=== PATIENT | female | born 1960 | race Two or more races ===

== ENCOUNTER 2018-07-22 01:17 | Inpatient (IN) | payer MEDICARE, MEDICAID ==
[~2018-07-22] VITALS: Ht 167.6 cm; Wt 83.5 kg
--- NOTE | 2018-07-22 02:45 | NUR ---
ADMITTED A 58 Y/O FEMALE FROM [facility], ON [address] HOLD DTS, BASED ON HOLD, PATIENT STATED SHE FEELS SAD AND UPSET WITH MOTHER. PATIENT WISHES TO KILL HERSELF BY TAKING RAT POISON. PATIENT ADMITTING DX. DEPRESSION AND MEDICAL DX. OF HYPERTENSION, RIGHT EYE BLINDNESS AND LEFT EYE POOR VISION. UPON FACE TO FACE EVALUATION, PATIENT APPEARED ALERT AND ORIENTED X 3, CALM, COOPERATIVE, FEARFUL, ANXIOUS, NEEDY, DENIES SI AT THIS TIME, DENIES HI, AH, VH, NO SOB, NO ACUTE DISTRESS, BREATHING EVEN AND UNLABORED, DENIES PAIN AND DISCOMFORT. BODY CHECK DONE, SKIN INTACT, PICTURE DONE, PATIENT UNABLE TO SIGN PAPER WORKS, PATIENT IS UNDER DR. BOO. BELONGINGS INSPECTED FOR CONTRABAND CHECKING. ALL NEEDS ATTENDED AND MET. PATIENT ORIENTED TO THE POLICIES AND PROCEDURE. CALL LIGHT PLACED WITHIN REACH. WILL CONTINUE TO MONITOR [id number] FOR SAFETY
[2018-07-22] MEDS ORDERED: MAG HYDROX/AL HYDROX/SIMETH 30 ML UDC PO PRN (03:00)
[2018-07-22] MEDS ORDERED: clonazePAM 0.5 MG TABLET PO PRN (03:00)
[2018-07-22 03:31] VITALS: BP 143/85
[2018-07-22] MEDS ORDERED: SOLI5TAB2 PO (04:05)
[2018-07-22] MEDS ORDERED: BRIM5DRO5 PO (04:05)
[2018-07-22] MEDS ORDERED: LURA80TA PO (04:05)
[2018-07-22] MEDS ORDERED: LOSA50TA39 PO (04:05)
[2018-07-22] MEDS ORDERED: VENL150C58 PO (04:05)
[2018-07-22] MEDS ORDERED: BENZ2TAB7 PO (04:05)
[2018-07-22] MEDS ORDERED: DORZ10DR10 LEFTEYE (04:05)
[2018-07-22] MEDS ORDERED: BIMA2.5D5 LEFTEYE (04:05)
--- NOTE | 2018-07-22 05:03 | NUR ---
GPS RN NOTE: NOTIFIED CARRINGTON ZUNIGA OF THE PATIENT ADMISSION AND FOR MED RECON
--- NOTE | 2018-07-22 09:13 | NUR ---
MIGUEL received a call from Brenda Lorenzana-director of radio services at the [facility] [phone] providing SW with collateral information and also informed her pt is diagnosed with Mild Intellectual Disability and Cerebral Palsy, She also informed SW that pt is currently under the psychiatric care of Dr. Marcial Morel [address] [address] [phone]. MIGUEL will collaborate discharge with Brenda as she stated pt does not want to return home.
--- NOTE | 2018-07-22 10:30 | NUR ---
MIGUEL contacted pts mother Melanie [phone] to discuss discharge planning. Per mother she does not have DPOA/Conservatorship over pt. Mother also stated that she would to be able to survive financially if pt is discharged to a SNF. Mother also stated that she wants the best for pt and feels that pt returning home will be the best place for her at the moment.
--- NOTE | 2018-07-22 11:05 | NUR ---
INITIAL DISCHARGE PLAN: Patient does not want to return home to [address] [place] [address]. However, pts mother Melanie [phone] wishes for pt to return home and states that placing pt at a SNF will not benefit pt. SW will coordinate discharge with Brenda Lorenzana-industrial garage servicer at the [facility] [phone] and pts mother and MD and plan for a safe and proper discharge.
[2018-07-22] MEDS: risperiDONE 1 MG TABLET PO SCH ×2 (12:31→16:20)
[2018-07-22] MEDS: BENZTROPINE MESYLATE (1 MG) 1 MG TABLET PO SCH ×2 (12:32→16:21)
[2018-07-22] MEDS: VENLAFAXINE XR 150 MG CAP.SR.24H PO SCH ×2 (12:32→16:20)
[2018-07-22] MEDS: BRIMONIDINE TARTRATE OPHT SOLN 5 ML BOTTLE LEFTEYE SCH ×2 (13:57→16:24)
[2018-07-22 16:00] VITALS: BP 132/92
[2018-07-22] MEDS: OXYBUTYNIN CHLORIDE 5 MG TABLET PO SCH (16:20)
[2018-07-22] MEDS: DORZOLAMIDE OPTH 2% 10 ML BOTTLE LEFTEYE SCH (16:24)
[2018-07-22 16:36] LABS: APPEARANCE,URINE SL CLOUDY (CLEAR); BILIRUBIN,URINE NEGATIVE (NEGATIVE); BLOOD, URINE NEGATIVE Ery/uL (NEGATIVE); COLOR,URINE YELLOW (YELLOW); KETONES,URINE NEGATIVE (NEGATIVE); LEUKOCYTE ESTERASE ,URINE 1+ (NEGATIVE); NITRITE, URINE NEGATIVE (NEGATIVE); PH,URINE 5.5 (5.0-8.0); PROTEIN,URINE NEGATIVE (NEGATIVE); UGLUCOSE TRACE mg/dL (NEGATIVE); UROBILINOGEN,URINE 0.2 EU/dL (0.2)
[2018-07-22 16:44] LABS: BACTERIA,URINE Rare /HPF (None Seen); RBC,URINE 0-2 /HPF (0-2); SQUAMOUS EPITHELIAL CELL,UR Few /HPF (None Seen)
--- NOTE | 2018-07-22 18:15 | NUR ---
PT. WITH AN ORDER OF 1:1 FOR RIGHT EYE BLINDNESS AND LEFT EYE POOR VISION.
[2018-07-22 20:00] VITALS: BP 112/74
[2018-07-22] MEDS: LATANOPROST EYE DROP 0.005% 2.5 ML BOTTLE LEFTEYE SCH (21:41)
[2018-07-22] MEDS ORDERED: LATANOPROST EYE DROP 0.005% 2.5 ML BOTTLE EACHEYE SCH (22:00)
[2018-07-23 07:31] LABS: BASOPHILS % (AUTO) 0.3 % (0.0-2.0); EOSINOPHILS % (AUTO) 1.6 % (0.0-6.0); HEMATOCRIT 43 % (33-45); HEMOGLOBIN 14.4 g/dL (11.5-14.8); LYMPHOCYTES # (AUTO) 1.7 /CMM (0.8-4.8); MEAN CORPUSCULAR HGB CONC 34 g/dl (31.0-36.0); MEAN CORPUSCULAR VOLUME 99 fL (82-100); MONOCYTES # (AUTO) 0.7 /CMM (0.1-1.30); MONOCYTES % (AUTO) 10.3 % (2.0-12.0); NEUTROPHILS # (AUTO) 4.2 /CMM (1.8-8.9); NEUTROPHILS % (AUTO) 62.8 % (43.0-81.0); PLATELET COUNT (AUTO) 196 /CMM (150-450); RED BLOOD CELL COUNT(AUTO) 4.32 MIL/uL (4.0-5.2); WHITE BLOOD COUNT (AUTO) 6.7 K/uL (4.3-11.0)
[2018-07-23 08:00] VITALS: BP 132/89
[2018-07-23 08:01] LABS: ALBUMIN 3.4 g/dL (3.4-5.0); BILIRUBIN,TOTAL 0.3 mg/dL (0.2-1.0); CALCIUM, SERUM 8.6 mg/dL (8.5-10.1); CREATININE 0.8 mg/dL (0.6-1.3); POTASSIUM 3.5 mmol/L (3.5-5.1); TOTAL PROTEIN, SERUM 6.9 g/dL (6.4-8.2)
[2018-07-23] MEDS: OXYBUTYNIN CHLORIDE 5 MG TABLET PO SCH ×2 (09:22→16:51)
[2018-07-23] MEDS: VENLAFAXINE XR 150 MG CAP.SR.24H PO SCH ×2 (09:22→16:52)
[2018-07-23] MEDS: LOSARTAN POTASSIUM 50 MG TABLET PO SCH (09:22)
[2018-07-23] MEDS: risperiDONE 1 MG TABLET PO SCH ×2 (09:22→16:51)
[2018-07-23] MEDS: BENZTROPINE MESYLATE (1 MG) 1 MG TABLET PO SCH ×2 (09:22→16:51)
[2018-07-23] MEDS: DORZOLAMIDE OPTH 2% 10 ML BOTTLE LEFTEYE SCH ×2 (09:23→16:53)
[2018-07-23] MEDS: BRIMONIDINE TARTRATE OPHT SOLN 5 ML BOTTLE LEFTEYE SCH ×3 (09:24→16:52)
--- NOTE | 2018-07-23 11:27 | NUR ---
MIGUEL received a call from Brenda Lorenzana-student services coordinator at the [facility] [phone] and discussed discharge planning. Brenda stated that if pt wishes to be discharged to a SNF short-term she would be able to assist pt with long-term placement. Brenda informed SW that she has been in contact with pts mother and has had several conversations regarding pts current living situation and her mental wellness. Brenda is aware that pts mother relies on pts income to survive and stated that due to mother not having any legal power over her pt is able to do as she wishes and if she wants to move out she is able to. SW stated that she would speak with pt regarding her discharge plan and plan accordingly.
[2018-07-23 16:00] VITALS: BP 112/76
[2018-07-23 20:00] VITALS: BP 109/64
[2018-07-23] MEDS: LATANOPROST EYE DROP 0.005% 2.5 ML BOTTLE LEFTEYE SCH (21:01)
[2018-07-23] MEDS: ACETAMINOPHEN 325 MG TABLET PO PRN (21:10)
[2018-07-24] MEDS: ACETAMINOPHEN 325 MG TABLET PO PRN (03:03)
[2018-07-24 08:00] VITALS: BP 131/78
[2018-07-24] MEDS: BENZTROPINE MESYLATE (1 MG) 1 MG TABLET PO SCH ×2 (09:21→17:29)
[2018-07-24] MEDS: OXYBUTYNIN CHLORIDE 5 MG TABLET PO SCH ×2 (09:21→17:29)
[2018-07-24] MEDS: VENLAFAXINE XR 150 MG CAP.SR.24H PO SCH ×2 (09:21→17:29)
[2018-07-24] MEDS: risperiDONE 1 MG TABLET PO SCH ×2 (09:21→17:29)
[2018-07-24] MEDS: LOSARTAN POTASSIUM 50 MG TABLET PO SCH (09:22)
[2018-07-24] MEDS: DORZOLAMIDE OPTH 2% 10 ML BOTTLE LEFTEYE SCH ×2 (09:22→17:30)
[2018-07-24] MEDS: BRIMONIDINE TARTRATE OPHT SOLN 5 ML BOTTLE LEFTEYE SCH ×3 (09:22→17:30)
[2018-07-24 16:00] VITALS: BP 131/70
[2018-07-24 20:00] VITALS: BP 119/59
[2018-07-24] MEDS: TEMAZEPAM 7.5 MG CAPSULE PO PRN (21:02)
[2018-07-24] MEDS: LATANOPROST EYE DROP 0.005% 2.5 ML BOTTLE LEFTEYE SCH (21:06)
[2018-07-25 08:00] VITALS: BP 126/92
[2018-07-25] MEDS: VENLAFAXINE XR 150 MG CAP.SR.24H PO SCH ×2 (08:41→17:20)
[2018-07-25] MEDS: risperiDONE 1 MG TABLET PO SCH ×2 (08:41→17:20)
[2018-07-25] MEDS: LOSARTAN POTASSIUM 50 MG TABLET PO SCH (08:41)
[2018-07-25] MEDS: BENZTROPINE MESYLATE (1 MG) 1 MG TABLET PO SCH ×2 (08:41→17:20)
[2018-07-25] MEDS: OXYBUTYNIN CHLORIDE 5 MG TABLET PO SCH ×2 (08:41→17:20)
[2018-07-25] MEDS: BRIMONIDINE TARTRATE OPHT SOLN 5 ML BOTTLE LEFTEYE SCH ×3 (08:41→17:21)
[2018-07-25] MEDS: DORZOLAMIDE OPTH 2% 10 ML BOTTLE LEFTEYE SCH ×2 (08:42→17:21)
[2018-07-25 16:00] VITALS: BP 126/83
--- NOTE | 2018-07-25 19:30 | NUR ---
GPS RN NOTE, RECEIVED PATIENT AWAKE AND IN BED NO S/S OR COMPLAINTS OF PAIN AT THIS TIME. PATIENT IS DISPLAYING NO S/S OF APPARENT DISTRESS AT THIS TIME. PATIENT BREATHING IS UNLABORED WITH EQUAL RISE AND FALL OF THE CHEST. PATIENT IS ALERT AND ORIENTED X 3 ON ROOM AIR WITH A SPO2 0F 95%. PATIENT HAS ONE TO ONE SITTER FOR BEING A HIGH FALL RISK. PATIENT IS MED COMPLIANT, DISORGANIZED, DEPRESSED, COOPERATIVE, CONFUSED AT TIME, AND NEEDS REORIENTATION. PATIENT DENIES SUICIDE AND HOMICIDAL IDEATIONS AT THIS TIME. PATIENT ASSISTED WITH TURNING AND REPOSITIONING Q2HR AND PRN FOR COMFORT AND CIRCULATION. PATIENT HAS NO NEEDS AT THIS TIME. PATIENT EDUCATED ON THE USE OF THE CALL AYALA. PATIENT BED SIDE RAILS ARE UP X 2 FOR SAFETY, BED IS LOCKED AND LOW. WILL CONTINUE TO MONITOR AND MAINTAIN SAFETY Q15 MIN WITH THE HELP OF STAFF.
[2018-07-25] MEDS: MAGNESIUM HYDROXIDE 30 ML UDC PO PRN (19:58)
--- NOTE | 2018-07-25 19:58 | NUR ---
GPS RN NOTE, PATIENT HAS A COMPLAINT OF CONSTIPATION AND IS REQUESTING MOM AT THIS TIME. PATIENT VITAL SIGNS ARE STABLE. GAVE MILK OF MAGNESIA 30 ML PO Q12HR PRN ORDERED. WILL REASSESS FOR CONSTIPATION AND I WILL CONTINUE TO MONITOR THIS PATIENT.
[2018-07-25 20:00] VITALS: BP 123/74
[2018-07-25] MEDS: LATANOPROST EYE DROP 0.005% 2.5 ML BOTTLE LEFTEYE SCH (21:24)
[2018-07-25] MEDS: TEMAZEPAM 7.5 MG CAPSULE PO PRN (21:33)
--- NOTE | 2018-07-25 21:33 | NUR ---
GPS RN NOTE, PATIENT HAS A COMPLAINT OF NOT BEING ABLE TO SLEEP AND IS REQUESTING RESTORIL AT THIS TIME. PATIENT VITAL SIGNS ARE STABLE. GAVE RESTORIL 7.5MG PO HS PRN ORDERED. WILL REASSESS FOR INSOMNIA AND I WILL CONTINUE TO MONITOR THIS PATIENT.
[2018-07-26] MEDS ORDERED: TEMAZEPAM 7.5 MG CAPSULE PO PRN (00:30)
[2018-07-26 08:07] VITALS: BP 116/71
[2018-07-26] MEDS: risperiDONE 1 MG TABLET PO SCH ×3 (08:43→17:10)
[2018-07-26] MEDS: OXYBUTYNIN CHLORIDE 5 MG TABLET PO SCH ×2 (08:44→17:10)
[2018-07-26] MEDS: LOSARTAN POTASSIUM 50 MG TABLET PO SCH (08:44)
[2018-07-26] MEDS: VENLAFAXINE XR 150 MG CAP.SR.24H PO SCH ×2 (08:44→17:10)
[2018-07-26] MEDS: BRIMONIDINE TARTRATE OPHT SOLN 5 ML BOTTLE LEFTEYE SCH ×3 (08:45→17:12)
[2018-07-26] MEDS: DORZOLAMIDE OPTH 2% 10 ML BOTTLE LEFTEYE SCH ×2 (08:45→17:11)
[2018-07-26] MEDS: BENZTROPINE MESYLATE (1 MG) 1 MG TABLET PO SCH ×2 (09:09→17:10)
--- NOTE | 2018-07-26 10:27 | NUR ---
SW contacted pts mother Melanie [phone] to discuss discharge planning. Mother agreed for pt to be discharged to a SNF. SW was present when pt spoke with mother and stated that she did not want to return home. Mother agreed and requested pt be referred to SNF's in [facility] [place], or [facility].
--- NOTE | 2018-07-26 11:44 | NUR ---
MIGUEL faxed SNF referrals to Alejandra, charge coordinator at [facility] Address: [address] [place] [address] , Annemarie, charge coordinator at [facility] Address: [address] [place] [address] , Yuridia charge coordinator at [facility] Address: [address] [place] [address] , Natalia, charge coordinator at [facility] Address: [address] [place] [address] , and Sommer charge coordinator at [facility] Address: [address] [place] [address] for review.
--- NOTE | 2018-07-26 14:01 | NUR ---
SW received call from Sommer, student life coordinator at [facility] Address: [address] [place] [address] stating pt has been accepted to the facility.
--- NOTE | 2018-07-26 14:02 | NUR ---
SW received a call from Natalia, educational technology coordinator at [facility] Address: [address], [place] [address] stating pt has been accepted to the facility.
[2018-07-26 16:00] VITALS: BP 115/76
[2018-07-26 20:00] VITALS: BP 116/76
[2018-07-26] MEDS: LATANOPROST EYE DROP 0.005% 2.5 ML BOTTLE LEFTEYE SCH (21:26)
[2018-07-27 07:16] LABS: CALCIUM, SERUM 8.7 mg/dL (8.5-10.1); CREATININE 0.9 mg/dL (0.6-1.3)
[2018-07-27 08:00] VITALS: BP 129/77
[2018-07-27] MEDS: BENZTROPINE MESYLATE (1 MG) 1 MG TABLET PO SCH ×2 (08:37→17:21)
[2018-07-27] MEDS: VENLAFAXINE XR 150 MG CAP.SR.24H PO SCH ×2 (08:37→17:21)
[2018-07-27] MEDS: LOSARTAN POTASSIUM 50 MG TABLET PO SCH (08:37)
[2018-07-27] MEDS: BRIMONIDINE TARTRATE OPHT SOLN 5 ML BOTTLE LEFTEYE SCH ×3 (08:37→17:21)
[2018-07-27] MEDS: OXYBUTYNIN CHLORIDE 5 MG TABLET PO SCH ×2 (08:37→17:21)
[2018-07-27] MEDS: risperiDONE 1 MG TABLET PO SCH ×2 (08:37→17:21)
[2018-07-27] MEDS: DORZOLAMIDE OPTH 2% 10 ML BOTTLE LEFTEYE SCH ×2 (08:38→17:21)
[2018-07-27] MEDS: MAGNESIUM HYDROXIDE 30 ML UDC PO PRN (11:07)
--- NOTE | 2018-07-27 11:13 | NUR ---
NURSING NOTE: PT STATING "I'M CONSTIPATED", REQUESTING MILK OF MAGNESIA. ADMINISTERED MILK OF MAGNESIA 30ML PO PER MD ORDER. WILL CONTINUE TO MONITOR.
--- NOTE | 2018-07-27 14:05 | NUR ---
SW contacted SW contacted pts mother Melanie [phone] to inform her pt has been accepted to [facility] and will be discharging tomorrow 07/28/18. Mother agreed with discharge plan.
--- NOTE | 2018-07-27 14:06 | NUR ---
MIGUEL contacted Sommer, area coordinator at [facility] Address: [address] [place] [address] to inform her pt was discharging tomorrow 07/28/18.
--- NOTE | 2018-07-27 14:07 | NUR ---
MIGUEL contacted Brenda Lorenzana-impact retail service merchandiser at the [facility] [phone] and left a voicemail informing her pt will be discharged tomorrow 07/28/18 to [facility] and [facility].
[2018-07-27 15:57] VITALS: BP 100/65
[2018-07-27] MEDS: LATANOPROST EYE DROP 0.005% 2.5 ML BOTTLE LEFTEYE SCH (21:52)
[2018-07-28 08:00] VITALS: BP 99/70
[2018-07-28] MEDS: BENZTROPINE MESYLATE (1 MG) 1 MG TABLET PO SCH (08:11)
[2018-07-28 08:12] VITALS: BP 99/70
[2018-07-28] MEDS: LOSARTAN POTASSIUM 50 MG TABLET PO SCH (08:12)
[2018-07-28] MEDS: risperiDONE 1 MG TABLET PO SCH (08:13)
[2018-07-28] MEDS: OXYBUTYNIN CHLORIDE 5 MG TABLET PO SCH (08:13)
[2018-07-28] MEDS: VENLAFAXINE XR 150 MG CAP.SR.24H PO SCH (08:13)
[2018-07-28] MEDS: BRIMONIDINE TARTRATE OPHT SOLN 5 ML BOTTLE LEFTEYE SCH ×2 (08:15→13:10)
[2018-07-28] MEDS: DORZOLAMIDE OPTH 2% 10 ML BOTTLE LEFTEYE SCH (08:16)
--- NOTE | 2018-07-28 13:43 | NUR ---
GPS ANDROID PLATFORM DEVELOPER NOTE: PT DISCHARGE TO [facility] AT [address] [place] [address] VIA AMBULANCE . PT IN STABLE CONDITION NO S/S DISTRESS NOTED, COMPLIANT WITH MEDICATIONS AND TX, DENIES SI/HI, VSS. EXIT CARE DONE, PRINTED PT UNABLE TO SIGN DUE TO BLINDNESS . SKIN CLEAN AND INTACT, ALL BELONGINGS RETURNED TO PT. DR RAJEEV Baker DC HOLD DC TO SNF WITH CONTINUE MEDICATIONS .REPORT GIVEN TO FACILITY RN .
--- NOTE | 2018-07-28 13:59 | NUR ---
DISCHARGE NOTE: Pt was discharged at 1:45pm via [facility] trip #[id number] to [facility] Address: [address] [place] [address] . Pts mother Melanie [phone] has been notified and agrees with discharge plan. Pts mood was euthymic with congruent affect. Pt denied visual/auditory hallucinations and denied suicidal/homicidal ideations. Pt will be under the care of Psychiatrist: Dr. Poonam Arndt [address] [place] [address] [address] [phone] and Manager Strategic Development: [facility] [address] [place] [address] [phone]. The multidisciplinary exitcare form was done, printed, signed, and given to the patient.
== END 2018-07-28 13:45 | DRG 885 ==
LOC: GPS 02:18
PROVIDERS: ADMIT Psychiatry & Neurology Psychiatry; ATTEND Registered Nurse
DX: F33.2 Major depressive disorder, recurrent severe without psychotic features (principal); N17.9 Acute kidney failure, unspecified; F70 Mild intellectual disabilities; R45.851 Suicidal ideations; F41.9 Anxiety disorder, unspecified; G80.9 Cerebral palsy, unspecified; I10 Essential (primary) hypertension; R32 Unspecified urinary incontinence; H54.3 Unqualified visual loss, both eyes; H40.9 Unspecified glaucoma
CPT/HCPCS: 36415; 80048-TC; 80053-TC; 80061-TC; 81000-TC; 85025-TC; 87081-TC; 87086-TC